=== PATIENT | female | born 1995 ===

== ENCOUNTER 2025-01-02 13:12 | Emergency (ER) | payer BC, SELFPAY ==
[2025-01-02 13:16] VITALS: BP 133/88; BMI 27.6
[2025-01-02 14:00] VITALS: BP 119/74
--- NOTE | 2025-01-02 14:01 | ED.GENMED ---
History of Present Illness
General
Chief Complaint: Allergic Reaction
Source: patient
Exam Limitations: none
Time Seen by Provider: 01/02/25 13:35
Nursing documentation reviewed up to this point in time: agreed with
History of Present Illness
History of Present Illness:
29-year-old female multiple allergies including nuts and eggs had a smoothly presumably has some knots, then developed itching and swelling in her throat with some wheezing no abdominal pain no nausea vomiting give yourself an EpiPen, call 911 EMS
gave 75 mg of Benadryl patient feeling better though she is a bit sleepy
Past History
Past History
ED Past Medical History: Other (Food allergies)
Social History
Tobacco: Non-smoker
Alcohol: None
Drug: None
Living: with family
Employment: Employed
Review of Systems
Review of Systems
All Other Systems: Not applicable
EENT: Reports mouth swelling (Improved)
Respiratory: Reports trouble breathing (Wheezing improved)
Cardiac: Reports no symptoms
ABD/GI: Reports no symptoms
: Reports no symptoms
Skin: Reports itching
Neurological: Reports no symptoms
Phy Exam
Physical Exam
Physical Exam:
Physical Exam
General: no apparent distress, not acutely ill
Neck: Posterior pharynx is clear
Heart: s1/s2 regular rate and rhythm, no murmur. equal radial pulses.
Lungs: No wheeze
Abdomen: Not tender
Neuro: alert and oriented. no focal neurological deficits
Skin: no rash
Psychiatric: well kept. interactive and cooperative
Extremities: no edema.
Course
Vital Signs
Initial and Last Documented VS:
Initial Vital Signs
Temp Pulse Resp BP Pulse Ox
98.2 F 78 18 133/88 97
01/02/25 13:16 01/02/25 13:16 01/02/25 13:16 01/02/25 13:16 01/02/25 13:16
Last Documented Vital Signs
Temp Pulse Resp BP Pulse Ox
98.2 F 91 18 119/74 98
01/02/25 13:16 01/02/25 14:30 01/02/25 13:16 01/02/25 14:00 01/02/25 14:15
MDM/Problems Addressed
Differential Diagnosis Includes:
Allergic reaction, hives, anaphylaxis
MDM/Problems Addressed:
Swelling after nuts presumably
Chronic conditions affecting care:
Food allergies
Acute Exacerbation and/or Progression of Chronic Illness:
Food allergy
*Pulse Oximetry
Patient hypoxic: no
*Critical Care Note
Total Time (30-74mins, 75-104mins- exclusive of procedures): Not Applicable
Update Note
Update Note:
Update patient looking better now after Benadryl and epi we will monitor for any reoccurrence will refill her meds
240 update patient feeling better
ED Attending Note
-
Portions of this chart may have been created with voice recognition software.� Occasional wrong word or��sound alike� substitutions may have occurred due to the inherent limitations of voice recognition software.
Discharge Plan
Departure
Patient Disposition: Home (Routine Discharge)
Date of Disposition: 01/02/25
Time of Disposition: 14:38
Patient with high blood pressure during this ER visit?: No
Condition: Good
Covid-19: Not Applicable
Discharge Problem:
Allergy to nuts
Instructions: Anaphylaxis - Discharge instructions
Prescriptions:
New
epinephrine [EpiPen 2-Jeffrey] 0.3 mg/0.3 mL auto-injector
0.3 mg IM Q5-15M PRN (Reason: anaphylaxis) Qty: 2 5RF
diphenhydramine HCl [Benadryl] 25 mg capsule
25 mg PO Q8H PRN (Reason: allergy symptoms) Qty: 20 0RF
Interventions
Interventions:
*Risk Screen - Suicide Last Done: 01/02/25 13:16
*General Assessment Last Done: 01/02/25 13:16
*Neglect/Abuse Screening Last Done: 01/02/25 13:16
ED- Fall Risk Assessment Last Done: 01/02/25 13:16
*ED COVID-19 Vaccine History Last Done: 01/02/25 13:16
ED- Cardiac Assessment Last Done: 01/02/25 13:16
ED- Pulmonary Assessment Last Done: 01/02/25 13:16
ED-Skin Assessment Last Done: 01/02/25 13:16
Discharge Date and Time
Print Language: BELARUSIAN
== END 2025-01-02 15:02 | disposition home or self-care (01) ==
LOC: EMR 13:12
PROVIDERS: EMERGENCY PHYSICIAN Emergency Medicine; FAMILY PHYSICIAN Physician Assistant
DX: L27.2 Dermatitis due to ingested food (principal)
CPT/HCPCS: 99282